=== PATIENT | male | born 1970 | race Caucasian/White ===

== ENCOUNTER 2016-05-15 00:26 | Emergency (ER) | payer OTHER ==
[~2016-05-15] VITALS: Ht 180.3 cm; Wt 95.0 kg
[2016-05-15 00:28] VITALS: BP 155/98; PULSE 124; RESP 18; TEMP 98; O2SAT 96
[2016-05-15] MEDS ORDERED: SODIUM CHLORIDE 0.9% FLUSH 5 ML FLUSH IVF PRN (02:45)
[2016-05-15] MEDS ORDERED: SODIUM CHLOR 0.9% 1000 ML INJ 1,000 ML IV ONE (02:45)
[2016-05-15 03:03] VITALS: RESP 16
[2016-05-15 03:19] LABS: AUTOMATED NEUTROPHIL # 10.9 TH/MM3 (1.8-7.7); BASOPHIL % 0.1 % (0.0-2.0); EOSINOPHIL % 0.2 % (0.0-4.0); HEMATOCRIT 48.6 % (39.0-51.0); HEMO FLAGS DIFF FINAL; LYMPH % 6.7 % (9.0-44.0); LYMPHOCYTE # 0.9 TH/MM3 (1.0-4.8); MEAN CORPUSCULAR HEMOGLOBIN 31.6 PG (27.0-34.0); MEAN CORPUSCULAR HGB CONC 34.8 % (32.0-36.0); MONO % 14.3 % (0.0-8.0); NEUT % 78.7 % (16.0-70.0); PLATELET COUNT 186 TH/MM3 (150-450); RED BLOOD COUNT 5.35 MIL/MM3 (4.50-5.90); RED CELL DISTRIBUTION WIDTH 14.4 % (11.6-17.2); WHITE BLOOD COUNT 13.9 TH/MM3 (4.0-11.0)
[2016-05-15 03:21] LABS: APTT (PATIENT) 32.9 SEC (24.3-30.1); PROTHROMBIN TIME - PATIENT 11.1 SEC (9.8-11.6)
[2016-05-15 03:24] LABS: ALT (GPT) 21 U/L (12-78); ANION GAP 10 MEQ/L (5-15); AST (GOT) 12 U/L (15-37); BICARBONATE 27.4 MEQ/L (21.0-32.0); BLOOD UREA NITROGEN 15 MG/DL (7-18); CHLORIDE 99 MEQ/L (98-107); GLOMERULAR FILTRATION RATE 70 ML/MIN (>89); POTASSIUM 3.8 MEQ/L (3.5-5.1); SODIUM (NA) 136 MEQ/L (136-145)
[2016-05-15 03:26] LABS: ALKALINE PHOSPHATASE 88 U/L (45-117)
[2016-05-15] MEDS ORDERED: IOHEXOL 350 MG/ML 10 ML VIAL (for RAD DIAG) IV ONE (03:55)
--- NOTE | 2016-05-15 04:21 | PD ---
HPI Chief Complaint: Facial Pain or Swelling Time Seen by Provider: 02:36 Travel History International Travel<30 days: No Contact w/Intl Traveler<30days: No Traveled to known affect area: No History of Present Illness HPI 46-year-old male here for evaluation for possible infection in his face and neck. Patient reports that about one month ago he had an infection on his right elbow which was treated with a home remedy. At that time he began to have nasal congestion and some difficulty swallowing. He reports having fevers. He states it is difficult for him to breathe through his nose. No chest pain or dyspnea. PFSH Past Medical History Medical History: Denies Significant Hx Diminished Hearing: No Tetanus Vaccination: Unknown Influenza Vaccination: No Past Surgical History Surgical History: No Previous Surgery Social History Alcohol Use: No Tobacco Use: No Substance Use: No Allergies-Medications (Allergen,Severity, Reaction): Coded Allergies: No Known Allergies (Unverified , 05/15/16) Reported Meds & Prescriptions Reported Meds & Active Scripts Active No Active Prescriptions or Reported Medications Review of Systems Except as stated in HPI: all other systems reviewed are Neg Physical Exam Narrative GENERAL: Well-developed, well-nourished, comfortable, no acute distress. SKIN: Warm and dry. HEAD: Atraumatic. Normocephalic. EYES: Pupils equal and round. No scleral icterus. No injection or drainage. ENT: No nasal bleeding or discharge. Mucous membranes pink and moist. Pharynx is erythematous. No tonsillar exudates. No drooling or stridor. No pharyngeal edema. Bilateral nasal turbinates are edematous and there is clear rhinorrhea. NECK: Trachea midline. No JVD. No nuchal rigidity. CARDIOVASCULAR: Regular rate and rhythm. RESPIRATORY: No accessory muscle use. Clear to auscultation. Breath sounds equal bilaterally. MUSCULOSKELETAL: No obvious deformities. No clubbing. No cyanosis. No edema. NEUROLOGICAL: Awake and alert. No obvious cranial nerve deficits. Motor grossly within normal limits. Normal speech. PSYCHIATRIC: Appropriate mood and affect; insight and judgment normal. Data Data Last Documented VS Vital Signs Date Time Temp Pulse Resp B/P Pulse Ox O2 Delivery O2 Flow Rate FiO2 05/15/16 03:03 16 05/15/16 00:28 98.0 124 155/98 96 Orders Complete Blood Count With Diff (05/15/16 02:39) Comprehensive Metabolic Panel (05/15/16 02:39) Prothrombin Time / Inr (Pt) (05/15/16 02:39) Act Partial Throm Time (Ptt) (05/15/16 02:39) Iv Access Insert/Monitor (05/15/16 02:39) Ecg Monitoring (05/15/16 02:39) Oximetry (05/15/16 02:39) Sodium Chloride 0.9% Flush (Ns Flush) (05/15/16 02:45) Influenzae A/B Antigen (05/15/16 02:39) Group A Rapid Strep Screen (05/15/16 02:39) Ct Soft Tiss Neck W Iv Cont (05/15/16 ) Sodium Chlor 0.9% 1000 Ml Inj (Ns 1000 M (05/15/16 02:45) Strep Culture (Group A) (05/15/16 03:00) Iohexol 350 Inj (Omnipaque 350 Inj) (05/15/16 03:55) Labs Laboratory Tests Test 05/15/16 03:00 White Blood Count 13.9 TH/MM3 Red Blood Count 5.35 MIL/MM3 Hemoglobin 16.9 GM/DL Hematocrit 48.6 % Mean Corpuscular Volume 91.0 FL Mean Corpuscular Hemoglobin 31.6 PG Mean Corpuscular Hemoglobin 34.8 % Concent Red Cell Distribution Width 14.4 % Platelet Count 186 TH/MM3 Mean Platelet Volume 7.8 FL Neutrophils (%) (Auto) 78.7 % Lymphocytes (%) (Auto) 6.7 % Monocytes (%) (Auto) 14.3 % Eosinophils (%) (Auto) 0.2 % Basophils (%) (Auto) 0.1 % Neutrophils # (Auto) 10.9 TH/MM3 Lymphocytes # (Auto) 0.9 TH/MM3 Monocytes # (Auto) 2.0 TH/MM3 Eosinophils # (Auto) 0.0 TH/MM3 Basophils # (Auto) 0.0 TH/MM3 CBC Comment DIFF FINAL Differential Comment Prothrombin Time 11.1 SEC Prothromb Time International 1.0 RATIO Ratio Activated Partial 32.9 SEC Thromboplast Time Sodium Level 136 MEQ/L Potassium Level 3.8 MEQ/L Chloride Level 99 MEQ/L Carbon Dioxide Level 27.4 MEQ/L Anion Gap 10 MEQ/L Blood Urea Nitrogen 15 MG/DL Creatinine 1.13 MG/DL Estimat Glomerular Filtration 70 ML/MIN Rate Random Glucose 110 MG/DL Calcium Level 9.7 MG/DL Total Bilirubin 1.0 MG/DL Aspartate Amino Transf 12 U/L (AST/SGOT) Alanine Aminotransferase 21 U/L (ALT/SGPT) Alkaline Phosphatase 88 U/L Total Protein 9.1 GM/DL Albumin 3.8 GM/DL MDM Medical Decision Making Medical Screen Exam Complete: Yes Emergency Medical Condition: Yes Differential Diagnosis Sinusitis, neck abscess, epiglottitis, pharyngitis, influenza Narrative Course Initial vital signs show heart rate 124 which improved to 95 after a liter of normal saline, blood pressure 155/98, pulse ox 96% on room air, temp of 98F. CBC is remarkable for WBC 13.9 with 78.7% neutrophils, otherwise unremarkable. CMP is unremarkable. Group A strep is negative. Influenza is negative. CT soft tissue neck: CONCLUSION: 1. No evidence for abscess formation within the neck. 2. Ethmoid sinusitis. Retention cyst right maxillary sinus. 3. Mild cervical adenopathy notably in the submandibular region bilaterally and right posterior cervical region with measurements given above. 4. Mildly prominent lymphoid tissue in Waldeyer's ring. Patient will be given a dose of Decadron and Toradol here in the emergency department as well as started on Augmentin. He is stable for discharge home with outpatient follow-up with an ENT this week. He was informed on when to return to the emergency department. He verbalizes understanding and agreement with plan. Diagnosis Primary Impression: Sinusitis Qualified Code: J01.20 - Subacute ethmoidal sinusitis Additional Impression: Lymphadenopathy Referrals: Marino Lawrence MD 1 week ENT Additional Instructions: Follow-up with ENT Dr. Lawrence or any anterior chest this week. Take antibiotic as prescribed. Stay hydrated with plenty of fluids. Return to the emergency room if worsening symptoms or any other concerns as discussed. Scripts Amoxicillin-Clavulanate (Augmentin)875-125 mg [id number] Mg PO BID 10 Days Ref 0 not for use in CrCl <30 ml/min. Prov:Bear Mcgregor MD 05/15/16 Disposition: 01 DISCHARGE HOME Condition: Stable Bear Mcgregor MD May 15, 2016 04:21
--- NOTE | 2016-05-15 04:25 | RADRPT ---
EXAM DATE/TIME: 05/15/2016 03:35 [facility] COMPARISON: No previous studies available for comparison. INDICATIONS : Pressure and swelling to face. Nasal congestion. IV CONTRAST: 95 cc Omnipaque 350 (iohexol) IV RADIATION DOSE: 18.37 CTDIvol (mGy) MEDICAL HISTORY : None ENCOUNTER: Initial ACUITY: 2 days PAIN SCALE: 0/10 LOCATION: facial neck TECHNIQUE: Volumetric scanning of the neck was performed. Using automated exposure control and adjustment of th e mA and/or kV according to patient size, radiation dose was kept as low as reasonably achievable to obtain optimal diagnostic quality images. FINDINGS: There is partial opacification of the ethmoid air cells. There is mucosal thickening in the maxillary sinuses with a large retention cyst in the right maxillary sinus measuring about 3.2 cm in diameter. Frontal sinus and sphenoid sinus are relatively clear. There are mildly enlarged lymph nodes in the neck bilaterally measuring up to 1.7 cm in the right sub mandibular region and 1.6 cm in the left submandibular region. There is also a mildly enlarged right- sided posterior cervical lymph node. Lymphoid tissue in Waldeyer's ring is fairly prominent. No loculated fluid identified in the neck to suggest abscess formation. No acute bony abnormalities. Lung apices are clear. CONCLUSION: 1. No evidence for abscess formation within the neck. 2. Ethmoid sinusitis. Retention cyst right maxillary sinus. 3. Mild cervical adenopathy notably in the submandibular region bilaterally and right posterior cervi stef region with measurements given above. 4. Mildly prominent lymphoid tissue in Waldeyer's ring. Marino Acevedo MD on May 15, 2016 at 4:17 Board Certified Radiologist. This report was verified electronically.
[2016-05-15] MEDS ORDERED: AUGM875T PO (04:37)
[2016-05-15] MEDS ORDERED: AMOXICILLIN/CLAVULANATE K 875 MG TAB PO ONE (04:45)
[2016-05-15] MEDS ORDERED: DEXAMETHASONE SOD PHOS 20 MG/5 ML VIAL IV PUSH ONE (04:45)
[2016-05-15] MEDS ORDERED: KETOROLAC TROMETHAMINE 30 MG/ML (IVP) VIAL IV PUSH ONE (04:45)
== END 2016-05-15 05:01 | disposition home or self-care (01) ==
LOC: NEPC 00:26
DX: J01.20 Acute ethmoidal sinusitis, unspecified (principal); R59.0 Localized enlarged lymph nodes
CPT/HCPCS: 70491; 80053; 85025; 85610; 85730; 87081; 87804; 87880; 96361; 96374; 96375; 99284; J1100; J1885; J7030; Q9967